=== PATIENT | female | born 1950 | race Caucasian/White ===

== ENCOUNTER 2019-04-30 15:05 | Outpatient (CLI) | payer MEDICARE, OTHER ==
[~2019-04-30 15:05] MED LIST: OMNIPAQUE 350 MG/ML, 100ML BOTTLE ONE
[2019-04-30 15:55] LABS: CREATININE 0.91 mg/dL (0.55-1.02)
== END 2019-04-30 23:59 | disposition home or self-care (01) ==
LOC: RAD 15:05
PROVIDERS: ATTEND Family Medicine
DX: R10.84 Generalized abdominal pain (principal)
CPT/HCPCS: 36415; 74177; 82565; Q9967